=== PATIENT | male | born 1990 | race Hispanic/Latino ===

== ENCOUNTER 2021-03-05 18:25 | Emergency (ER) | payer OTHER ==
[2021-03-05] MEDS ORDERED: SODIUM CHLORIDE 0.9% 1000 ML 1,000 ML IV ONE (18:58)
--- NOTE | 2021-03-05 18:58 | Emergency Department Report ---
ED Syncope HPI - General Chief Complaint: Seizure Stated Complaint: LOC Time Seen by Provider: 03/05/21 18:54 Source: patient Exam Limitations: no limitations - History of Present Illness Initial Comments: Patient is a 30-year-old male that presents emergency room for a near syncopal episode. Patient states he is currently at [facility] for alcohol rehab. Patient states he is voluntarily admitted to [facility]. Patient states that he was outside having a cigarette and he got very hot and felt like he was in a pass out. Patient states he never lost consciousness and remembers all the events clearly that were happening around him but felt really weak and had a extremely blurry vision. Patient states then somebody brought him into the medical station of [facility] from the smoking area. Patient states they never gave him any Ativan or benzos but rather gave him his pancreatic enzymes pill. Patient states that EMS picked him up from [facility]. Patient states he was brought in by [facility]. Patient states that EMS gave him a low-dose of Ativan while in route because EMS was afraid that this was a withdrawal seizure. Patient states he is withdrawing from alcohol many times but has never had a withdrawal seizure. Patient states that he has not required any benzos his entire 5 days it has been in [facility]. Patient states his last drink was 5 days ago. Patient states she never lost full consciousness. Patient denies chest pain shortness of breath. Patient states he feels back to normal. Patient denies recent travel. Patient denies recent international travel. Patient denies exposure to the novel coronavirus. Patient denies sick contacts. Patient denies fever and chills. Patient denies cough. Patient denies diarrhea. Patient denies coming in contact with anybody with symptoms of the novel coronavirus. Timing/Prior Episodes: single episode today Precipitating Factors: Positive: blurred vision, diaphoresis, lightheadedness Context: standing Loss of Consciousness: no loss of consciousness Current Symptoms: back to normal - Related Data Allergies/Adverse Reactions: Allergies No Known Allergies Allergy (Unverified 03/05/21 18:50) ED Review of Systems ROS: Stated complaint: LOC Other details as noted in HPI Constitutional: denies: chills, fever Eyes: denies: eye pain, eye discharge, vision change ENT: denies: ear pain, throat pain Respiratory: denies: cough, shortness of breath, wheezing Cardiovascular: denies: chest pain, palpitations Endocrine: no symptoms reported Gastrointestinal: denies: abdominal pain, nausea, diarrhea Genitourinary: denies: urgency, dysuria Musculoskeletal: denies: back pain, joint swelling, arthralgia Skin: denies: rash, lesions Neurological: as per HPI. denies: headache, paresthesias Psychiatric: denies: anxiety, depression Hematological/Lymphatic: denies: easy bleeding, easy bruising ED Past Medical Hx - Past Medical History Previous Medical History?: Yes Additional medical history: pancreatitis, alcohol dependency - Surgical History Past Surgical History?: No - Family History Family history: no significant - Social History Smoking Status: Current Every Day Smoker Substance Use Type: Alcohol ED Physical Exam - General Limitations: No Limitations General appearance: alert, in no apparent distress - Head Head exam: Present: atraumatic, normocephalic - Eye Eye exam: Present: normal appearance, PERRL Pupils: Present: normal accommodation - ENT ENT exam: Present: mucous membranes dry - Neck Neck exam: Present: normal inspection - Respiratory Respiratory exam: Present: normal lung sounds bilaterally. Absent: respiratory distress, wheezes, rales - Cardiovascular Cardiovascular Exam: Present: regular rate, normal rhythm. Absent: systolic murmur, diastolic murmur, rubs, gallop - GI/Abdominal GI/Abdominal exam: Present: soft, normal bowel sounds. Absent: distended, tenderness, guarding - Rectal Rectal exam: Present: deferred - Extremities Exam Extremities exam: Present: normal inspection - Back Exam Back exam: Present: normal inspection, full ROM - Neurological Exam Neurological exam: Present: alert, oriented X3, CN II-XII intact, normal gait. Absent: motor sensory deficit - Psychiatric Psychiatric exam: Present: normal affect, normal mood - Skin Skin exam: Present: warm, dry, intact, normal color. Absent: rash ED Course Vital Signs 03/05/21 03/05/21 03/05/21 18:25 18:31 18:45 Temperature 98.9 F Pulse Rate 102 H 102 H 103 H Respiratory 17 17 25 H Rate Blood Pressure 117/78 117/78 O2 Sat by Pulse 99 98 96 Oximetry 03/05/21 03/05/21 03/05/21 19:01 19:15 19:31 Temperature Pulse Rate 96 H 94 H 101 H Respiratory 27 H 25 H 22 Rate Blood Pressure 115/81 115/81 115/81 O2 Sat by Pulse 99 98 99 Oximetry 03/05/21 03/05/21 19:45 20:01 Temperature Pulse Rate 93 H 90 Respiratory 21 17 Rate Blood Pressure 115/81 118/78 O2 Sat by Pulse 100 100 Oximetry - Reevaluation(s) Reevaluation #1: Patient states he is feeling better. Patient urine is pending. Patient is ambulatory in the ER without difficulty. Patient denies pain. Patient denies seizure activity or loss of consciousness. Patient has not had a seizure activity while in the ER. Patient's heart rate has improved with fluids. 03/05/21 20:45 Reevaluation #2: Patient states feeling better. Patient heart rate is controlled. Patient a mbulatory without difficulty. I discussed all results and clinical findings with patient. I discussed plan of care with patient. Patient agrees with plan of care. Patient is stable for discharge. Patient will be discharged home. Patient given discharge instructions. Patient voiced understanding of discharge instructions. 03/05/21 22:07 ED Medical Decision Making - Lab Data Result diagrams: 03/05/21 19:06 03/05/21 19:06 - Medical Decision Making Patient is a 30-year-old male who presents from a local rehab facility for a near syncopal episode. Patient states he was outside smoking became quite hot and then became extremely weak. Patient describes the episode and states he was conscious throughout the entire time. Patient states that the rehab facility was saying he had a seizure but he states he never had a seizure. Patient states he is therefore alcohol rehab and his last drink was 5 days ago. Patient dates he is never had a seizure when he withdrawals. Patient states he was not given benzos at the facility and the patient was given benzos by EMS because they could not find where he had received at the facility. Patient states that he is aware of all the events that took place. Patient did not have any seizure activity in the ER. Patient's heart rate improved with fluids. Patient given a liter of fluids. Patient ambulatory and had a neuro neuro exam while in the ER. Patient had labs done which were essentially unremarkable. Patient's urine and urine drug screen were negative. Patient is stable for discharge. Patient be discharged back to his rehab facility to continue his rehabilitation. Patient given discharge instructions. - Differential Diagnosis Dehydration, heat exhaustion, near syncope. Critical care attestation.: If time is entered above; I have spent that time in minutes in the direct care of this critically ill patient, excluding procedure time. ED Disposition Clinical Impression: Near syncope Heat exhaustion Qualifiers: Encounter type: initial encounter Qualified Code(s): T67.5XXA - Heat exhaustion, unspecified, initial encounter Disposition: TO HOME OR SELFCARE Is pt being admited?: No Does the pt Need Aspirin: No Condition: Stable Instructions: Near-Syncope, Heat Exhaustion Additional Instructions: Patient to follow-up with primary care in 2 to 3 days. Patient to leave the ER and return to [facility] to continue rehabilitation.. Patient to rest. Patient to increase water. Patient to avoid strenuous exercise or heavy lifting until cleared by primary care.. Patient to take Tylenol or ibuprofen as needed for pain. Patient to return to the ER if condition worsens, changes or new symptoms arise. Referrals: [facility] [Other] - 2-3 Days Time of Disposition: 22:10
[2021-03-05 19:15] LABS: Basophils % (Auto) 0.1 % (0.0-1.8); Eosinophils % (Auto) 0.2 % (0.0-4.3); Hematocrit 37.4 % (35.5-45.6); Hemoglobin 13.1 gm/dl (11.8-15.2); Lymphocytes # (Auto) 1.8 K/mm3 (1.2-5.4); Lymphocytes % (Auto) 22.2 % (13.4-35.0); Mean Corpuscular HGB Conc 35 % (32-34); Mean Corpuscular Volume 99 fl (84-94); Monocytes # (Auto) 0.4 K/mm3 (0.0-0.8); Monocytes % (Auto) 5.3 % (0.0-7.3); Platelet Count 173 K/mm3 (140-440); Red Blood Count 3.77 M/mm3 (3.65-5.03); Red Cell Distribution Width 13.4 % (13.2-15.2)
[2021-03-05 19:38] LABS: Alanine Aminotransferase 16 units/L (7-56); Albumin 4.3 g/dL (3.9-5); Blood Urea Nitrogen 10 mg/dL (9-20); Hemolysis Index 7
[2021-03-05 19:40] LABS: BUN/Creatinine Ratio 17
[2021-03-05 21:23] LABS: Amphetamine Screen,Urine Negative; Benzodiazepines Screen,Urine Negative; Cannabinoid Screen,Urine Negative; Cocaine Screen,Urine Negative; Methadone Screen,Urine Negative; Opiate Screen,Urine Negative
[2021-03-05 21:47] LABS: Bilirubin,Urine NEG (Negative); Blood,Urine NEG (Negative); Color,Urine Yellow (Yellow); Hyaline Casts,Urine 1 /LPF; Mucus,Urine FEW /HPF; Protein,Urine <15 mg/dL mg/dL (Negative)
[2021-03-06 01:42] VITALS: BP 141/85
== END 2021-03-06 01:42 | disposition home or self-care (01) ==
LOC: ED 18:25
DX: T67.5XXA Heat exhaustion, unspecified, initial encounter (principal); R55 Syncope and collapse; F17.200 Nicotine dependence, unspecified, uncomplicated; X58.XXXA Exposure to other specified factors, initial encounter; Y93.89 Activity, other specified; Y92.89 Other specified places as the place of occurrence of the external cause; Y99.8 Other external cause status
CPT/HCPCS: 36415; 80053; 80307; 81001; 85025; 96360